=== PATIENT | female | born 1960 ===

== ENCOUNTER → 2020-04-20 | Outpatient (CLI) | payer OTHER ==
--- NOTE | 2020-04-20 17:05 | KCIC ---
STUDY: MRI of the right knee without contrast INDICATION: Right knee pain since November after stepping in a hole. COMPARISON: None. TECHNIQUE: Multiplanar MR imaging of the right knee performed without the use of intravenous or intra-articular contrast. FINDINGS: Menisci: Mild edema-like signal/cystic change within the tibial plateau subjacent to the medial meniscus posterior root insertion but no tear is seen at this location or elsewhere. The lateral meniscus is intact. The medial meniscal body extends out from the joint line by around 2.5 mm in the setting of medial compartment chondral loss as discussed below. Cruciate ligaments: Intact. Collateral ligaments: Intact. Tendons: Intact. Cartilage: Patellofemoral: Patellar chondrosis is greatest at the median ridge and along the medial facet. Place Change Roof Bolter high-grade/near full-thickness chondral loss at the upper margin of the medial facet, image 9 series 3. Trochlear chondrosis localized to the periphery of the medial aspect where there is a presumed full-thickness fissure, image 13 series 3. Lateral compartment: Mild chondrosis of the lateral femoral condyle best seen at the junction of the weightbearing and posterior nonweightbearing aspect, image 11 series 8. Either artifact or partial thickness defect at the inner margin of the weightbearing lateral tibial plateau, image 14 series 8. Medial compartment: High-grade favored near full-thickness chondrosis at the weightbearing medial femoral condyle. Partial thickness chondrosis extends to involve the posterior nonweightbearing medial femoral condyle. Bones: No acute fracture or aggressive marrow signal abnormality. Small joint line osteophytes. Miscellaneous: Small amount of knee joint fluid. Small, mildly complex Rider's cyst. Mildly complex small volume fluid beneath the lateral gastrocnemius origin. The suprapatellar fat pad appears mildly edematous but the TT-TG distance is normal. IMPRESSION: 1. Intact menisci, cruciate ligaments and collateral ligaments. 2. 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 3. Small Rider's cyst. Electronically signed by: CHARLOTTE SMART MD (04/20/2020 5:02 PM) [id number]
== END | disposition home or self-care (01) ==
LOC: KCIC MRI 14:01
PROVIDERS: ATTEND Family Medicine
DX: M25.761 Osteophyte, right knee (principal); M25.461 Effusion, right knee; M71.21 Synovial cyst of popliteal space [Baker], right knee
CPT/HCPCS: 73721